=== PATIENT | male | born 1960 | race Caucasian/White ===

== ENCOUNTER 2016-09-21 00:06 | Day surgery (SDC) | payer OTHER ==
[2016-09-21] VITALS (15 sets, daily range): BP systolic 105–127; BP diastolic 69–90; PULSE 55–107; RESP 14–22; O2SAT 92–98
[~2016-09-21] VITALS: Ht 177.8 cm; Wt 103.0 kg
[~2016-09-21 00:06] MED LIST: APIX5TAB PO; BET80 PO; ESOM40CA53 PO; LISI-571 PO
[2016-09-21] MEDS ORDERED: EPHEDrine/NS 5 mg/mL 5 mL Syringe ONE (00:07)
[2016-09-21] MEDS ORDERED: Phenylephrine 10,000 mCg/mL Inj ONE (00:07)
[2016-09-21] MEDS ORDERED: Propofol 10,000 mCg/mL 20 mL Inj ONE (00:07)
[2016-09-21] MEDS ORDERED: Phenylephrine/NS-PF 100 mCg/mL 5 mL Syringe IVPUSH ONE (00:07)
[2016-09-21] MEDS ORDERED: Ondansetron 2 mg/mL 2 mL Inj ONE (00:07)
[2016-09-21] MEDS ORDERED: Dexamethasone 4 mg/mL Inj ONE (00:07)
[2016-09-21] MEDS ORDERED: Succinylcholine Chloride 20 mg/mL 5 mL Inj ONE (00:07)
[2016-09-21] MEDS ORDERED: fentaNYL-PF 50 mCg/mL 2 mL Inj ONE (00:07)
[2016-09-21] MEDS ORDERED: Lactated Ringer's 1,000 ML IV SCH ×2 (05:00→13:06)
[2016-09-21] MEDS: 0.9% Sodium Chloride 1,000 ML IV SCH ×4 (06:04→16:04)
[2016-09-21 06:34] LABS: BASOPHILS % (AUTO) 0.9 % (0-3); EOSINOPHILS % (AUTO) 9.5 % (0-5); Mean Corpuscular Hemoglobin 31.6 pg (27.0-35.0); NEUTROPHILS % (AUTO) 43.5 % (40-74); Platelet Count 193 bil/L (150-400)
--- NOTE | 2016-09-21 06:48 | NUR ---
Patient dmitted for TONYA/atrial fibrillation ablation with Dr Rios.He is accompanied by his .
[2016-09-21] MEDS ORDERED: Heparin 1,000 Unit/1,000mL NS Premix IV ONE ×2 (07:37→12:46)
[2016-09-21] MEDS ORDERED: Heparin 1,000 Units/500 mL NS Premix IV ONE (07:39)
[2016-09-21] MEDS ORDERED: 0.9% Sodium Chloride 1,000 ML ONE (07:41)
[2016-09-21] MEDS ORDERED: Heparin 25,000 Unit/500 mL 0.45% NS Premix IV ONE (07:41)
--- NOTE | 2016-09-21 07:54 | PCM.HPANE ---
Patient Data Date of Service: Sep 21, 2016 Surgeon Admitting Provider: Attending Provider:Agus Rios MD Primary Care Physician:Praveen Carbajal MD Other Provider:Chuck Conner Anesthesia Reason for Visit Paroxysmal A-Fib Ht/WT & BMI Height (Feet): 5 Height (Inches): 10.00 Height (Centimeters): 177.8 Weight (Kilograms): 103 Body Mass Index 0.00 Allergies Coded Allergies: Sulfa (Sulfonamide Antibiotics) (Verified Allergy, Mild, 12/11/15) Past Anesthesia History Anesthesia History: Denies:: Anesthesia Reactions (denies any prior bad reactions), Difficult Intubation, Fam Anesthesia Reaction Diabetes History Hx Diabetes?: No MRSA MRSA: No Medications Home Meds Incl Beta Daniel: Yes Date Beta Daniel Taken: Sep 20, 2016 Time Beta Daniel Taken: 21:00 Previous Beta Daniel Dose >24: Previous Dose <24 Hours Active Scripts Sotalol (Betapace)80 Mg [id number] Mg PO BID #60 TAB Ref 6 Prov:Roc Rivas PA-C 12/13/15 Lisinopril 5 Mg Tablet5 Mg PO BID #60 TABLET Ref 6 Prov:Roc Rivas PA-C 12/13/15 Reported Medications Apixaban (Eliquis)5 Mg Tablet5 Mg PO BID 09/20/16 Esomeprazole Magnesium 40 Mg Capsule.dr40 Mg PO QAM 12/11/15 Discontinued Reported Medications Aspirin 325 Mg [id number] Mg PO QPM 12/12/15 History History of ENT Problems?: No Hx of Heart Problems?: Yes Cardiovascular History: Positive for:: Chest Pain Hypertension Irregular Heartbeat (Atrial fibrillation/flutter) Denies:: Cardiac Surgery Congestive Heart Failure Edema Heart Murmur Pacemaker Thrombophlebitis Hx of Respiratory Problem?: Yes Respiratory History: Positive for:: Dyspnea (with A-fib/flutter) Denies:: Asthma COPD Chest Surgery Emphysema Hemoptysis Pneumonia Tuberculosis Hx Neurologic Problems?: No Neurological History: Denies:: CVA Peripheral Neuropathy Hx of GI Problems?: Yes Gastrointestinal History: Positive for:: Gastroesphageal Reflux Heartburn Denies:: Diverticulitis Gastrointestinal Bleeding Hepatitis Hiatal Hernia Rectal Bleeding Hx of Problems?: No Male Hx: Denies:: Prostate Problems Hx Musculoskeletal Problems?: Yes Musculoskeletal History: Positive for:: Back Injury (herniated disc with decreased reflex right leg) Musculoskeletal Trauma (L finger 90% severed; reattached but decreased coordination) Denies:: Joint Replacement Hx of Psycho/Social Problems?: No Hx Surgeries?: Yes (L ring finger reattached surgically.) Hx Any Other Health Problems?: Yes Other History: Denies:: Cancer Hospitalization Thyroid Disease History Blood Transfusions: Positive for:: Accept Blood Products? Denies:: Blood Transfusions Hx Diabetes: No Hx Alcohol Use: Yes (2-4 beers daily)Hx Substance Use: No Smoking Status: Never Smoker Have You Smoked inLast 12 mo: No Stop/Bang Treated for Sleep Apnea?: Yes Do You Have a CPAP Machine?: Yes AYANNA Category 4 OutPt Procedure: Yes Risk Assessment Category Category 1A: Patient has history of documented sleep apnea, and HAS NOT received any narcotic, sedative or anesthesia administration during this stay. Category 1B: Patient has history of documented sleep apnea, and HAS received any narcotic , sedative or anesthesia administration during this stay Category 2: Patient has SUSPECTED Obstructive Sleep Apnea, and HAS received any narcotic , sedative or anesthesia administration during this stay. Category 3: Patient has SUSPECTED Obstructive Sleep Apnea and HAS NOT received narcotic, sedative or anesthesia administration during this stay. Category 4: Outpatient in Procedural Areas with known sleep apnea or who screen positive for High Risk via the STOP/BANG questionnaire. Exam Exam Vital Signs Vital Signs Date Time Temp Pulse Resp B/P Pulse Ox O2 Delivery O2 Flow Rate FiO2 09/21/16 06:36 36.5 107 15 125/90 98 Room Air General Appearance: Alert, Oriented X3, Cooperative, No Acute Distress HEENT/AIRWAY: MP 2, Neck Movement (from), Other (teeth intact) Lungs: Clear to Auscultation, Normal Air Movement Heart: Exam Unremarkable, Regular Rate/Rhythm, No Murmurs/Rubs/Gallops Meds/Labs/Diagnostics Labs Test 09/21/16 06:15 White Blood Count 5.6th/mm3 (3.8-10.1) Red Blood Count 5.22mil/mm3 (4.40-5.80) Hemoglobin 16.5g/dL (13.8-17.2) Hematocrit 47.0% (41.0-50.0) Mean Corpuscular Volume 90.0fL (81-100) Mean Corpuscular Hemoglobin 31.6pg (27.0-35.0) Mean Corpuscular Hemoglobin Concent 35.1% (32.0-37.0) Red Cell Distribution Width 12.8% (12.3-15.4) Platelet Count 193bil/L (150-400) Neutrophils (%) (Auto) 43.5% (40-74) Lymphocytes (%) (Auto) 33.7% (14-46) Monocytes (%) (Auto) 12.0% (4-12) Eosinophils (%) (Auto) 9.5% (0-5) Basophils (%) (Auto) 0.9% (0-3) Prothrombin Time 10.7sec (8.1-12.5) Prothromb Time International Ratio 1.00ratio Sodium Level 140mEq/L (134-144) Potassium Level 4.2mEq/L (3.5-5.2) Chloride Level 104mEq/L (97-108) Carbon Dioxide Level 22mmol/L (18-29) Blood Urea Nitrogen 13mg/dL (6-24) Creatinine 0.93mg/dL (0.76-1.27) Estimat Glomerular Filtration Rate 90mL/min (>59) Glucose Level 110mg/dL (60-99) Calcium Level 8.9mg/dL (8.5-10.1) Plan Impression Patient chart reviewed, patient interviewed and anesthestic plan with risks, benefits, and alternatives discussed, and informed consent obtained. NPO Status: Appropriate ASA Physical Status: ASA3 Severe Disease (Afib, AYANNA) Anesthetic Plan: GA Bene/Risks/Altern/Consents: Yes HP Complete Prior to Induction: Yes John Barajas MD Sep 21, 2016 07:54
[2016-09-21] MEDS ORDERED: Heparin 5,000 Units/500 mL NS Premix IV ONE (09:00)
[2016-09-21] MEDS ORDERED: Heparin 1,000 Unit/mL 10 mL Inj ONE ×3 (09:07→12:46)
[2016-09-21] MEDS ORDERED: HYDROcodone-APAP 5-325 mg Tablet PO PRN (12:30)
[2016-09-21] MEDS ORDERED: Ondansetron 2 mg/mL 2 mL Inj IVPUSH PRN ×2 (12:30→13:10)
[2016-09-21] MEDS ORDERED: Protamine Sulfate 10 mg/mL 5 mL Inj ONE ×2 (12:46)
--- NOTE | 2016-09-21 12:47 | DRSVH ---
[facility] [address] [place] [address] Echocardiogram Report Name: JAVIER SPENCE BStudy Date: Height: 70 in Hospital Exam Location: [facility] Weight: 213 lb Gender: Male BSA: 2.1 m2 : 1960 Age: 56 yrs Reason For Study: Atrial fibrillation - paroxysmal Performed By: Juliet Reyna Referring Physician: NUNO GONZALEZ Interpretation Summary The patient was in atrial fibrillation with rapid ventricular response during the exam with a heart rate exceeding 100 bpm. The left ventricle is grossly normal size. Left ventricular ejection fraction is estimated to be 35 +/- 5%. There is no LV thrombus. The right ventricle is mildly dilated. Right ventricular systolic function is mildly reduced. No thrombus is detected in the left atrial appendage. Spontaneous contrast in LA. Procedure: Informed consent for Transesophageal Echocardiogram, and use of a contrast agent as needed, was obtained prior to the procedure. The patient was brought to the cardiac catheterization lab in a fasting state. The transesophageal probe was passed without difficulty. Sedation was managed by anesthesiologist; see anesthesiology notes for details. The usual views were obtained; basal, mid-esophageal, transgastric and aortic views. The patient's vital signs, including blood pressure, heart rate, pulse oximetry and cardiac rhythm were monitored throughout the procedure and remained stable. The patient tolerated the procedure well without evidence of orophangeal or esophageal trauma. A 2D transesophageal echocardiogram with spectral and color flow Doppler was performed. The patient was in atrial fibrillation with rapid ventricular response during the exam with a heart rate exceeding 100 bpm. There were no complications. Left Ventricle: The left ventricle is grossly normal size. There is no thrombus. Left ventricular ejection fraction is estimated to be 35 +/- 5%. Compared to the prior exam, the left ventricular function is reduced. There is moderate to severe global hypokinesis of the left ventricle. Right Ventricle: The right ventricle is mildly dilated. Right ventricular systolic function is mildly reduced. Atria: Both atria are moderately dilated. Spontaneous contrast in LA. No thrombus is detected in the left atrial appendage. The interatrial septum is intact with no evidence for an atrial septal defect. Mitral Valve: The mitral valve is normal in structure and function. There is trace mitral regurgitation. Aortic Valve: The aortic valve is trileaflet. The aortic valve opens well. There is no aortic valve stenosis. No aortic regurgitation is present. Tricuspid Valve: The tricuspid valve is normal. There is mild tricuspid regurgitation. Pulmonic Valve: The pulmonic valve leaflets are thin and pliable; valve motion is normal. Reading Physician:ZEB
[2016-09-21] MEDS ORDERED: Lactated Ringer's 500 ML IV PRN (13:06)
[2016-09-21] MEDS ORDERED: Labetalol 5 mg/mL 4 mL Inj IV PRN (13:10)
[2016-09-21] MEDS ORDERED: MetoCLOpramide 5 mg/mL 2 mL Inj IVPUSH PRN (13:10)
[2016-09-21] MEDS ORDERED: fentaNYL-PF 50 mCg/mL 2 mL Inj IVPUSH PRN (13:10)
[2016-09-21] MEDS ORDERED: hydrALAZINE 20 mg/mL Inj IVPUSH PRN (13:10)
[2016-09-21] MEDS ORDERED: Phenylephrine 10,000 mCg/mL Inj IVPUSH PRN (13:10)
[2016-09-21] MEDS ORDERED: EPHEDrine Sulfate 50 mg/mL Inj IVPUSH PRN (13:10)
[2016-09-21] MEDS ORDERED: HYDROmorphone 1 mg/mL Inj IVPUSH PRN (13:10)
[2016-09-21] MEDS ORDERED: EPHEDrine Sulfate 50 mg/mL Inj IM PRN (13:10)
--- NOTE | 2016-09-21 13:57 | PROCED ---
[address] [address] PROCEDURE NOTE PATIENT: JAVIER SPENCE : 1960 MR#: [id number] ADMIT: 09/21/2016 JOB ID: [id number] DATE OF SERVICE: 09/21/2016 PREOPERATIVE DIAGNOSIS(ES): 1. Paroxysmal drug refractory atrial fibrillation. 2. Paroxysmal atrial flutter. POSTOPERATIVE DIAGNOSIS(ES): 1. Paroxysmal drug refractory atrial fibrillation. 2. Paroxysmal atrial flutter. PROCEDURES PERFORMED: 1. Comprehensive electrophysiology study with left atrial pacing recording via coronary sinus catheter. 2. Three-dimensional electroanatomical mapping using the CARTO 3 system. 3. Intracardiac echocardiography. 4. Atrial fibrillation ablation with pulmonary vein isolation including transseptal puncture x2. 5. Direct current cardioversion. 6. Barium esophagram. 7. Fluoroscopy. 8. Atrial flutter ablation (cavotricuspid isthmus ablation). 9. Additional atrial focus ablation. SURGEON: Agus Rios MD, electrophysiology attending. ASSISTANTS: You Will, Roc Rivas PA-C, Kimberlee Barth. ANESTHESIA: General endotracheal anesthesia was undertaken for this case. INDICATION: The patient is a pleasant 66-year-old man with highly symptomatic drug refractory atrial fibrillation and flutter. After discussion of risks and benefits of catheter-based mapping and ablation, he opted to proceed. PROCEDURAL DESCRIPTION: Following informed signed consent, the patient was taken to the EP laboratory in a fasting, nonsedated state, where he was prepped and draped in the usual sterile fashion. He underwent a preprocedural transesophageal echocardiogram by Dr. Roman, confirming lack of intracardiac thrombus. Please see separate dictated report for details of that procedure. The bilateral groins were then infiltrated with 1% lidocaine. Then, using modified Seldinger technique, two 8-Malagasy sheaths were inserted into the right femoral vein. A 7 and a 10.5-Malagasy sheath were inserted into the left femoral vein. Under fluoroscopic guidance, a deflectable decapolar catheter was advanced to the coronary sinus with the most proximal bipoles at the os of the sinus. An intracardiac echocardiography probe was advanced into the RV outflow tract and used to visualize the pericardial space. No effusion was noted. The ICE probe was pulled back into the right atrium and used to visualize the interatrial septum and assistance with transseptal puncture. Two transseptal punctures were performed in an identical fashion, each with a short 8-Malagasy sheath in the right groin which were exchanged over a long wire for a Ellis sheath dilator and [place] Brockenbrough needle. The entire system was used to engage the interatrial septum. Then, under fluoroscopic ICE and pressure guidance, the septum was traversed twice to deploy the two Ellis sheaths into the left atrium. The patient was heparinized for a goal ACT of 350 to 400 seconds for the entire time that we were in the left atrium. A re-survey of the pericardial space showed no evidence of effusion. Through the two Ellis sheaths, an FJ-curved bi-directional irrigated ST ablation catheter was passed, as was a 20 pole PentaRay catheter. A three-dimensional electroanatomical map of the left atrium and four pulmonary veins was created using the Arkadin 3 system. Circumferential lesions were placed around the ostia of the four pulmonary veins achieving entrance and exit block in all four veins. Following entrance block in the left upper pulmonary vein, a 200 joule biphasic synchronized shock was used to convert the patient to a sinus rhythm. Exit block was confirmed. Entrance and exit block was confirmed in the remaining three pulmonary veins including the left lower, right upper and right lower pulmonary veins. We then disengaged from the left atrium. Resurveyed the pericardial space. It showed no evidence of effusion, and turned off the patient's heparin. We then prepared for atrial flutter ablation. The two Ellis sheaths were exchanged over long wires for short 9-Malagasy sheaths, through which a Livewire 20-pole catheter was used to encircle the tricuspid annulus. The same ablation catheter was redeployed through the opposite 9-Malagasy sheath and a three-dimensional map of the cavotricuspid isthmus was created using the Arkadin 3 system. Catheter stability was suboptimal. I therefore exchanged this short 9-Malagasy sheath for an SR0 long sheath. A linear series of ablation were performed from the ventricular to the IVC aspect of the cavotricuspid isthmus while pacing the coronary sinus os and monitoring the atrial activation pattern on the Livewire catheter. Medial to lateral block was achieved. Lateral to medial was confirmed. A 20 minute waiting period was undertaken during which bidirectional block was reconfirmed. We reversed the patient's heparin, removed the sheaths and manual pressure was held for hemostasis. The patient was transferred to the [facility] for monitoring and bedrest. During the course of this study, we did complete a comprehensive electrophysiology study with right atrial pacing recording, right ventricular pacing recording, His bundle pacing recording and left atrial pacing recording. COMPLICATIONS: None. ESTIMATED BLOOD LOSS: 20 cc. FINDINGS: 1. Baseline rhythm is atrial fibrillation. Post ablation and cardioversion, he was in sinus rhythm with an RR interval of 1241 msec, CT 162 msec, QRS 99 msec, QT 432 msec. 2. Intracardiac intervals: AH interval 114 msec, HV 33 msec. 3. Retrograde conduction: Atrial activation was concentric. VA Wenckebach was seen at 390 msec. 4. Atrial fibrillation ablation with pulmonary vein isolation with entrance and exit block in all four pulmonary veins. 5. Cavotricuspid isthmus ablation with bidirectional block. Specifically, transisthmus time is 146 msec in the medial to lateral direction and 144 msec in the lateral to medial direction. IMPRESSION: Successful pulmonary vein isolation and cavotricuspid isthmus ablation for paroxysmal atrial fibrillation and flutter. PLAN: 1. Bedrest x4 hours. 2. Continue anticoagulation with first dose of Eliquis to be given now. 3. Continue proton pump inhibitor. 4. Continue sotalol. 5. Monitoring overnight. 6. Follow up with Roc Rvias PA-C in clinic in four weeks, and with me in three months. ATTENDING STATEMENT: Agus Rios MD, electrophysiology attending, was present for and supervised/performed all aspects of this procedure.
--- NOTE | 2016-09-21 16:11 | NUR ---
Patient tx to room 2025 in stable condition.Report given to Mark Ross R.N. and handoff at the bedside upon tx. Bilateral groin sites dry and intact, no bruising or complaint of pain. at bedside.Pt off bedrest at 5 pm. Remains in sinus rhythm.
--- NOTE | 2016-09-21 17:03 | PCM.ANEP2 ---
Post Anesthesia Evaluation ASA/CMS Post Anesthesia Date of Service: Sep 21, 2016 VS in Patient's Normal Range?: Yes Resp Stable; Airway Patent?: Yes CV Function & Hydration Stable: Yes Mental Status Recovered?: Yes Pain control Satisfactory?: Yes N/V Control Satisfactory?: Yes John Barajas MD Sep 21, 2016 17:03
--- NOTE | 2016-09-21 17:03 | PCM.ANEP1 ---
Post Anesthesia Phase 1 PACU Phase 1 Assessment Date of Service: Sep 21, 2016 Vital Signs Vital Signs Date Time Temp Pulse Resp B/P Pulse Ox O2 Delivery O2 Flow Rate FiO2 09/21/16 16:37 71 09/21/16 15:55 78 15 114/73 Room Air 09/21/16 15:00 70 17 110/69 Room Air 09/21/16 14:30 76 17 116/72 Room Air 09/21/16 14:00 60 14 110/78 93 Room Air 09/21/16 13:45 60 14 112/87 92 Room Air 09/21/16 13:30 62 16 114/81 93 Room Air 09/21/16 13:15 64 14 111/76 93 Room Air 09/21/16 13:00 69 16 115/79 94 Room Air 09/21/16 12:55 71 18 121/78 94 Room Air 09/21/16 12:50 72 16 118/78 92 Room Air Anesthetic Administered: GA Level of Alertness: Awake, talking MEZA's with Equal Strength: Yes Pain: Yes (back pain) Pain Scale Score: 3 Nausea or Vomiting: No Oxygen Delivery: Room Air Lungs: Clear to Auscultation, Normal Air Movement Dermatome Level: Full Sensation John Barajas MD Sep 21, 2016 17:02
--- NOTE | 2016-09-21 17:58 | NUR ---
Admit to PCC Post-Ablation Pt to PCC from [facility] at 14:30 report received from Ene Peterson RN. Vitals stable, bilateral groin site soft and non-tender. Pedal pulses strong and equal bilaterally with good cap refill. Cardiac: Pt reports he has mild chest pressure which he has had for years. During assessment, tele called to report increase in HR. Rhythm had been SR 60s irregular with PACs and occasional PVCs. Rate increased to 130s. 20:30 Sotalol dose given early since pt had missed his last two doses per [facility] report. Rate back to 60s within the hour. Resp: Pt reports "very very slight" SOB. SPO2 high 90s on RA. Pt's throat is slightly sore and raspy. RT Roosevelt To called regarding setting up CPAP or APAP for NOC use per order. GI/: Pt denies n/v/d, Amezquita draining pale urine to gravity, Amezquita to be DC'd. when pt off bed rest. Neuro: A&Ox3, DERRICK
[2016-09-22] MEDS: 0.9% Sodium Chloride 1,000 ML IV SCH ×2 (02:00)
[2016-09-22 04:33] VITALS: BP 118/79; PULSE 66; RESP 18; O2SAT 97
[2016-09-22 05:46] VITALS: PULSE 68
--- NOTE | 2016-09-22 06:02 | NUR ---
Cardiac Pt tele SR 80s-90s and down to 60s at end of shift w/ PACs. Pt denied chest pain/dizziness/palpitations throughout night. Bilateral groin sites soft w/ no s/sx of hematoma, pedal pulses palpable and pt states good sensation in extremities. BP stable.
[2016-09-22] MEDS ORDERED: Pantoprazole 40 mg ER24 Tablet PO SCH (06:30)
[2016-09-22 08:00] VITALS: PULSE 61
[2016-09-22 08:02] VITALS: BP 123/87; PULSE 61; RESP 16; O2SAT 97
--- NOTE | 2016-09-22 08:37 | PCM.DIMED ---
Discharge Instructions Date of Service Sep 22, 2016 Dates of Hospitalization Discharge Diagnosis Discharge Diagnosis Paroxysmal Atrial Fibrillation Paroxysmal Atrial Flutter Diet No restrictions Activity Other (To prevent infection, do not sit in a bath tub or hot tub or pool for 5 days; to prevent bleeding, do not lift, push or pull more than 10 lbs for 5 days ) Call your provider Fever or Chills, Bleeding, Excessive diarrhea, Weakness (unilateral) Patient Instructions Mid-level Provider (F9): Roc Rivas PA-C Follow-up with Mid-level in: 4 weeks Roc Rivas PA-C Sep 22, 2016 08:37
--- NOTE | 2016-09-22 11:30 | NUR ---
Discharge Pt discharged today at 11:30. Pt off floor via ambulation with all of his belongings in the company of the nurse and his to private vehicle. Pt provided with follow up instructions and education material on heart healthy diet and cardiac ablation. Extra instruction was given for post venous cath care and precautions. Pt and voice understanding.
--- NOTE | 2016-09-27 11:34 | DIS ---
[address] [address] DISCHARGE SUMMARY PATIENT: JAVIER SPENCE : 1960 MR#: [id number] ADMIT: 09/21/2016 JOB ID: [id number] DIS: 09/22/2016 REASON FOR ADMISSION: Atrial fibrillation ablation procedure. CHIEF COMPLAINT: Excessive palpitations, fatigue and shortness of breath. BRIEF HISTORY: The patient is a pleasant, 56-year-old man, with a structurally normal heart, who has been dealing with atrial fibrillation and atrial flutter along with frequent PVCs for some time now. He was started on sotalol in the middle of 2015 and did well for a while, but now finds that his arrhythmia is back and accounts for 50% of heartbeats. He is fatigued and has shortness of breath with the frequent palpitations. His ECG confirmed atrial fibrillation and he has been on Eliquis for anticoagulation for a full month now. After discussion regarding antiarrhythmic medications and an atrial fibrillation ablation procedure with Dr. Rios, he wished to proceed with the ablation. COURSE IN THE HOSPITAL: The patient was admitted to the [facility] and taken to the lab specialist, where he was first placed under general anesthesia by the anesthesiologist. He then underwent a TONYA which showed no evidence of left atrial thrombus. The ablation procedure was then undertaken and accomplished without incident. He was awakened from anesthesia, after the femoral venous sheaths were removed. Hemostasis was obtained. He was transferred back to the [facility] for further recovery. He was then transferred up to the telemetry floor for overnight observation and he did well. In the morning, he was ambulatory without difficulty and had the Amezquita catheter removed. He was able to urinate. He denied chest pain, or lightheadedness. He felt well for discharge home. The patient was discharged home in good condition with a followup appointment at the [facility] Cardiology office in one month. He was asked not to sit in a hot tub, bathtub, or pool for five days, and not to lift, push or pull more than 10 pounds for five days to prevent bleeding. He may follow a general diet and take medications as prescribed. DISCHARGE MEDICATIONS: 1. Eliquis 5 mg b.i.d. 2. Esomeprazole 40 mg q.a.m. 3. Lisinopril 5 mg b.i.d. 4. Sotalol 120 mg b.i.d. FINAL DIAGNOSES: 1. Paroxysmal atrial fibrillation. 2. Paroxysmal atrial flutter. 3. Atrial fibrillation ablation procedure on September 21, 2016.
[2017-01-09] MEDS ORDERED: METO-272 PO (15:50)
== END 2016-09-22 11:30 | disposition home or self-care (01) ==
LOC: SOUO 00:06 → PCC 16:02 → SOUO 09-22 11:30
PROVIDERS: ATTEND Internal Medicine Cardiovascular Disease
DX: I48.0 Paroxysmal atrial fibrillation (principal); I48.92 Unspecified atrial flutter; Z79.01 Long term (current) use of anticoagulants; G47.33 Obstructive sleep apnea (adult) (pediatric); Z79.899 Other long term (current) drug therapy
CPT/HCPCS: 36415; 80048; 85025; 85610; 93005; 93613; 93655; 93656; 93662; C1730; C1731; C1732; C1759; C1769; C1893; C1894; C8925; J0330; J1100; J1644; J2250; J2370; J2405; J2720; J3010; J7040

== ENCOUNTER 2017-01-10 00:52 | Day surgery (SDC) | payer OTHER ==
[~2017-01-10] VITALS: Ht 177.8 cm; Wt 100.0 kg
[2017-01-10] VITALS (7 sets, daily range): BP systolic 94–118; BP diastolic 70–97; PULSE 55–101; RESP 15–20; O2SAT 92–100
[~2017-01-10 00:52] MED LIST changes: -BET80 PO; +METO-272 PO
[2017-01-10] MEDS ORDERED: Propofol 10,000 mCg/mL 20 mL Inj ONE (00:53)
[2017-01-10] MEDS ORDERED: Lactated Ringer's 1,000 ML IV SCH (05:00)
[2017-01-10] MEDS ORDERED: 0.9% Sodium Chloride 1,000 ML IV ONE (08:00)
[2017-01-10 10:51] LABS: EOSINOPHILS % (AUTO) 8.2 % (0-5); MONOCYTES % (AUTO) 8.4 % (4-12); Mean Corpuscular Hemoglobin 32.1 pg (27.0-35.0); Mean Corpuscular Volume 93.5 fL (81-100); NEUTROPHILS % (AUTO) 54.7 % (40-74); Platelet Count 175 bil/L (150-400)
--- NOTE | 2017-01-10 10:57 | NUR ---
DEON admit Admitted to [facility] about 1020. VSS. Denies pain but does state that he feels some chest heaviness when he is in Afib. Pt. in Afib 90's-130's. See EMR for further info and assessment. Procedure and recovery reviewed. Verbalizes understanding. Awaiting Anesthesia, Echo and MD.
[2017-01-10 11:09] LABS: INR 1.06 ratio
[2017-01-10] MEDS ORDERED: Atropine 1 mg/10 mL (Code) Syringe ONE (11:18)
--- NOTE | 2017-01-10 11:22 | PCM.HPANE ---
Patient Data Date of Service: Jan 10, 2017 (1121) Surgeon Admitting Provider: Attending Provider:Agus Rios MD Primary Care Physician:Clint Other Provider:Chuck Conner Anesthesia Reason for Visit Paroxysmal Atrial Fibrillation Ht/WT & BMI Height (Feet): 5 Height (Inches): 10.00 Weight (Kilograms): 100.000 Body Mass Index 31.56 Allergies Coded Allergies: Sulfa (Sulfonamide Antibiotics) (Verified Allergy, Mild, 01/10/17) Past Anesthesia History Anesthesia History: Denies:: Anesthesia Reactions (denies any prior bad reactions), Difficult Intubation, Fam Anesthesia Reaction Diabetes History Hx Diabetes?: No MRSA MRSA: No Medications Active Scripts Lisinopril 5 Mg Tablet5 Mg PO BID #60 TABLET Ref 6 Prov:Roc Rivas PA-C 12/13/15 Reported Medications Metoprolol Succinate ER 50 Mg Tab.er.24h50 Mg PO BID Ref 0 01/09/17 Apixaban (Eliquis)5 Mg Tablet5 Mg PO BID 09/20/16 Esomeprazole Magnesium 40 Mg Capsule.dr40 Mg PO QAM 12/11/15 Discontinued Scripts Sotalol (Betapace)80 Mg Rldbdr907 Mg PO BID #60 TAB Ref 6 Prov:Roc Rivas PA-C 12/13/15 History History of ENT Problems?: No HEENT History: Denies:: Difficult Intubation Denture Type: None Teeth Condition: Within Normal Limits Hx of Heart Problems?: Yes Cardiovascular History: Positive for:: Cardiac Surgery (Ablation) Chest Pain Hypertension Irregular Heartbeat (Atrial fibrillation/flutter) Denies:: Congestive Heart Failure Edema Heart Murmur Pacemaker Peripheral Vascular Thrombophlebitis Hx of Respiratory Problem?: Yes Respiratory History: Positive for:: Dyspnea (with A-fib/flutter) Denies:: Asthma COPD Chest Surgery Emphysema Hemoptysis Pneumonia Tuberculosis Hx Neurologic Problems?: No Neurological History: Denies:: CVA Dementia Dizziness Headaches Parkinson's Disease Seizures Hx of GI Problems?: Yes Hx of Problems?: No Male Hx: Denies:: Prostate Problems Hx Musculoskeletal Problems?: Yes Musculoskeletal History: Positive for:: Back Injury (herniated disc with decreased reflex right leg) Musculoskeletal Trauma (L finger 90% severed; reattached but decreased coordination) Denies:: Joint Replacement Hx of Psycho/Social Problems?: No Hx Surgeries?: Yes (L ring finger reattached surgically.) Hx Any Other Health Problems?: Yes Other History: Denies:: Cancer Hospitalization Thyroid Disease History Blood Transfusions: Positive for:: Accept Blood Products? Denies:: Blood Transfusions Hx Diabetes: No Hx Alcohol Use: Yes (2-4 beers daily)Hx Substance Use: No Smoking Status: Never Smoker Have You Smoked inLast 12 mo: No Stop/Bang Treated for Sleep Apnea?: Yes Do You Have a CPAP Machine?: Yes AYANNA Risk Assessment: High Risk, =/>3 Yes Risk Assessment Category Category 1A: Patient has history of documented sleep apnea, and HAS NOT received any narcotic, sedative or anesthesia administration during this stay. Category 1B: Patient has history of documented sleep apnea, and HAS received any narcotic , sedative or anesthesia administration during this stay Category 2: Patient has SUSPECTED Obstructive Sleep Apnea, and HAS received any narcotic , sedative or anesthesia administration during this stay. Category 3: Patient has SUSPECTED Obstructive Sleep Apnea and HAS NOT received narcotic, sedative or anesthesia administration during this stay. Category 4: Outpatient in Procedural Areas with known sleep apnea or who screen positive for High Risk via the STOP/BANG questionnaire. Exam Exam Vital Signs Vital Signs Date Time Temp Pulse Resp B/P Pulse Ox O2 Delivery O2 Flow Rate FiO2 01/10/17 10:46 101 19 116/97 100 Room Air General Appearance: Alert, Oriented X3, Cooperative HEENT/AIRWAY: MP 1 Lungs: Clear to Auscultation Heart: Exam Unremarkable (irregular) Meds/Labs/Diagnostics Labs Test 01/10/17 10:40 White Blood Count 6.1th/mm3 (3.8-10.1) Red Blood Count 5.24mil/mm3 (4.40-5.80) Hemoglobin 16.8g/dL (13.8-17.2) Hematocrit 49.0% (41.0-50.0) Mean Corpuscular Volume 93.5fL (81-100) Mean Corpuscular Hemoglobin 32.1pg (27.0-35.0) Mean Corpuscular Hemoglobin Concent 34.3% (32.0-37.0) Red Cell Distribution Width 13.2% (12.3-15.4) Platelet Count 175bil/L (150-400) Neutrophils (%) (Auto) 54.7% (40-74) Lymphocytes (%) (Auto) 27.4% (14-46) Monocytes (%) (Auto) 8.4% (4-12) Eosinophils (%) (Auto) 8.2% (0-5) Basophils (%) (Auto) 1.0% (0-3) Sodium Level 139mEq/L (134-144) Potassium Level 4.4mEq/L (3.5-5.2) Chloride Level 106mEq/L (97-108) Carbon Dioxide Level 22mmol/L (18-29) Blood Urea Nitrogen 14mg/dL (6-24) Creatinine 0.93mg/dL (0.76-1.27) Estimat Glomerular Filtration Rate 90mL/min (>59) Glucose Level 93mg/dL (60-99) Calcium Level 9.5mg/dL (8.5-10.1) Plan Impression Patient chart reviewed, patient interviewed and anesthestic plan with risks, benefits, and alternatives discussed, and informed consent obtained. NPO per Anesth. Guidelines: Yes ASA Physical Status: ASA2 Mod Systemic Disease Anesthetic Plan: GA Bene/Risks/Altern/Consents: Yes HP Complete Prior to Induction: Yes Elias Coleman MD Jan 10, 2017 11:22
[2017-01-10] MEDS ORDERED: Amiodarone 150 mg/100 mL D5W Premix IV ONE (11:47)
--- NOTE | 2017-01-10 11:51 | PCM.ANEP1 ---
Post Anesthesia PACU Phase 1 Assessment Vital Signs 104/77, 72, 18, 97% Vital Signs Date Time Temp Pulse Resp B/P Pulse Ox O2 Delivery O2 Flow Rate FiO2 01/10/17 10:46 101 19 116/97 100 Room Air Anesthetic Administered: GA Level of Alertness: Awake, talking MEZA's with Equal Strength: Yes Pain: No Nausea or Vomiting: No CV Function & Hydration Stable: Yes Airway Device: none Oxygen Delivery: Room Air Lungs: Clear to Auscultation Dermatome Level: Full Sensation Summary uneventful sedation PACU Phase 2 Assessment Complications: No Follow up Care: No Patient Instructions Provided: N/A Elias Coleman MD Jan 10, 2017 11:51
[2017-01-10] MEDS ORDERED: AMIO200T PO ×2 (12:23)
--- NOTE | 2017-01-10 12:29 | NUR ---
Procedure/Recovery Procedure commenced about 1130. Anesthesia provided care during procedure, see their flow sheet. TONYA complete and pt. cardioverted with 200J x1 about 1140 with return to SR/SB with PAC's. EKG done. Care resumed at 1155 with pt. arousable with stable VS. Denies pain. Refusing po to this point but denies throat soreness. Orders received from Dr. Rios. Returned to baseline about 1230. Awaiting .
--- NOTE | 2017-01-10 13:15 | NUR ---
Discharge returned about 1300. IV Discontinued intact. Discharge instructions given, see sheets. Verbalizes understanding. Discharged ambulatory with and all belongings in no distress.
--- NOTE | 2017-01-10 18:37 | PROCED ---
[address] [address] PROCEDURE NOTE PATIENT: JAVIER SPENCE : 1960 MR#: [id number] ADMIT: 01/10/2017 JOB ID: [id number] DATE OF SERVICE: 01/10/2017 POSTOPERATIVE DIAGNOSIS(ES): PREOPERATIVE DIAGNOSIS(ES): SURGEON: Siri Morton MD. PROCEDURES PERFORMED: Direct-current cardioversion. INDICATIONS: Atrial fibrillation with rapid ventricular response, symptomatic, requiring TONYA, cardioversion, and initiation of amiodarone. DESCRIPTION OF PROCEDURE: Informed consent was obtained. Patient brought to the DEON. Pads were placed in the AP position. Anesthesia was provided by the anesthesia service and prior to cardioversion, a TONYA was performed to rule out thrombus in the left atrium and left atrial appendage. After this was complete, sedation was confirmed. A 200-joule synchronized biphasic shock was delivered with conversion to sinus rhythm. No complications. IMPRESSION: Successful direct-current cardioversion from atrial fibrillation to sinus rhythm.
--- NOTE | 2017-01-11 13:15 | DRSVH ---
[facility] [address] [place] [address] Echocardiogram Report Name: JAVIER SPENCE BStudy Date: Height: 67 in Hospital Exam Location: [facility] Weight: 224 lb Gender: Male BSA: 2.1 m2 : 1960 Age: 56 yrs BP: 116/97 mmHg Reason For Study: Atrial fibrillation Ordering Physician: Performed By: Marcos Mishra Interpretation Summary 1. No thrombus appreciated in the sampled segments of the left atrium or left atrial appendage. Procedure: Informed consent for Transesophageal Echocardiogram, and use of a contrast agent as needed, was obtained prior to the procedure. The patient was brought to the DEON in a fasting state. An intravenous line was placed. A topical anesthetic agent was used for oropharangeal anesthesia. A bite block was inserted. Sedation was managed by anesthesiologist; see anesthesiology notes for details. The transesophageal probe was passed without difficulty. A 2D transesophageal echocardiogram with spectral and color flow Doppler was performed. The patient was in atrial fibrillation with rapid ventricular response during the exam with a heart rate exceeding 100 bpm. There were no complications. Atria: No thrombus appreciated in the sampled segments of the left atrium or left atrial appendage. Mitral Valve: The leaflets appear thin with normal excursion. There is mild mitral regurgitation. Aortic Valve: The aortic valve is trileaflet. The aortic valve opens well. Reading Physician:01:14 PM
== END 2017-01-10 23:59 | disposition home or self-care (01) ==
LOC: SOUO 00:52
PROVIDERS: ATTEND Internal Medicine Cardiovascular Disease
DX: I48.0 Paroxysmal atrial fibrillation (principal); Z79.01 Long term (current) use of anticoagulants; G47.33 Obstructive sleep apnea (adult) (pediatric); Z98.890 Other specified postprocedural states
CPT/HCPCS: 36415; 80048; 85025; 85610; 92960; 93005; C8925; J0282; J2250; J7030